=== PATIENT | male | born 1960 | race Caucasian/White ===

== ENCOUNTER 2017-10-11 09:10 | Day surgery (SDC) | payer BC, OTHER ==
[2017-10-11] MEDS ORDERED: NS 1,000 ML IV (09:15)
[2017-10-11] MEDS ORDERED: PROPOFOL 500 MG/50 ML VIAL As Ordered (09:55)
[2017-10-11] MEDS ORDERED: LIDOCAINE 2% INJ 100 MG/5 ML SDV (FOR ANES.) As Ordered (10:00)
[2017-10-11] MEDS ORDERED: LABETALOL HCL 100 MG/20 ML VIAL As Ordered (10:59)
[2017-10-11 11:39] LABS: BEDSIDE GLUCOSE 108 MG/DL (70-105)
== END 2017-10-11 11:58 | disposition home or self-care (01) ==
LOC: M OPP 09:10
DX: Z12.11 Encounter for screening for malignant neoplasm of colon (principal); D12.6 Benign neoplasm of colon, unspecified; R12 Heartburn; B37.81 Candidal esophagitis; Z86.010 Personal history of colon polyps; I10 Essential (primary) hypertension; E78.5 Hyperlipidemia, unspecified; K21.9 Gastro-esophageal reflux disease without esophagitis; J45.909 Unspecified asthma, uncomplicated; R06.02 Shortness of breath; E10.9 Type 1 diabetes mellitus without complications; Z79.4 Long term (current) use of insulin; Z79.82 Long term (current) use of aspirin; Z79.899 Other long term (current) drug therapy; Z90.79 Acquired absence of other genital organ(s)
CPT/HCPCS: 45385

== ENCOUNTER 2023-08-30 10:41 | Day surgery (SDC) | payer BC, OTHER ==
[~2023-08-30] VITALS: Ht 182.9 cm; Wt 116.8 kg
[~2023-08-30 10:41] MED LIST: ADVA230A INH; ALBU8.5H INH; ASPI81TA26 PO; CHLO125TA PO; INSUH10VL SC; NS 1,000 ML IV ONE; PANT40TA29 PO; PRAV40TA2 PO; PROAAER10 INH; QUIN20TA15 PO; TELM1TAB37 PO
[2023-08-30] MEDS ORDERED: fentaNYL 100 MCG/2 ML INJECTION As Ordered ONE (11:46)
[2023-08-30 12:48] VITALS: BP 110/57; O2SAT 96
== END 2023-08-30 12:55 | disposition home or self-care (01) ==
LOC: M OPP 10:41
PROVIDERS: ATTEND Internal Medicine Gastroenterology
DX: D12.0 Benign neoplasm of cecum (principal); K64.0 First degree hemorrhoids; Z86.010 Personal history of colon polyps; R12 Heartburn; I10 Essential (primary) hypertension; E10.9 Type 1 diabetes mellitus without complications; E78.5 Hyperlipidemia, unspecified; G47.30 Sleep apnea, unspecified; J45.909 Unspecified asthma, uncomplicated; Z99.89 Dependence on other enabling machines and devices; Z79.51 Long term (current) use of inhaled steroids; Z79.4 Long term (current) use of insulin; Z79.899 Other long term (current) drug therapy; Z87.891 Personal history of nicotine dependence
CPT/HCPCS: 43239; 45385; 88305; J3010

== ENCOUNTER → 2023-11-18 | Outpatient (CLI) | payer BC, OTHER ==
[~2023-11-18] MED LIST changes: -NS 1,000 ML IV ONE
== END ==
LOC: M RAD 07:50
PROVIDERS: ATTEND Internal Medicine
DX: N50.812 Left testicular pain (principal); K40.21 Bilateral inguinal hernia, without obstruction or gangrene, recurrent; N50.3 Cyst of epididymis; I86.1 Scrotal varices